=== PATIENT | male | born 1950 | race Caucasian/White ===

== ENCOUNTER 2017-12-26 13:47 | Emergency (ER) | payer OTHER, MEDICARE ==
[~2017-12-26] VITALS: Ht 175.3 cm; Wt 83.9 kg
[2017-12-26 14:34] LABS: ABSOLUTE BASOPHILS 0.1 thou/uL (0.0-0.2); ABSOLUTE LYMPHOCYTES 1.7 thou/uL (0.8-5.3); ABSOLUTE MONOCYTES 1.1 thou/uL (0.0-1.2); ABSOLUTE NEUTROPHILS 7.2 thou/uL (1.6-8.1); BASOPHILS 0.5 %; EOSINOPHILS 0.1 %; HEMATOCRIT 45.9 % (42.0-52.0); HEMOGLOBIN 15.7 gm/dL (14.0-18.0); LYMPHOCYTES 16.7 %; MCH 32.6 pg (26.0-34.0); MCHC 34.2 g/dL (28.0-37.0); MCV 95.4 fL (80.0-100.0); MONOCYTES 11.2 %; MPV 8.3 fl. (7.2-11.1); NUCLEATED RBCS 0 /100WBC; PLATELET COUNT* 225 thou/uL (150-400); POLYS 71.5 %; RBC 4.81 mil/uL (4.50-6.00); RDW-CV 13.9 % (10.5-14.5); WBC 10.1 thou/uL (4.0-11.0)
[2017-12-26 14:49] LABS: CALCIUM 9.3 mg/dL (8.5-10.1); CREATININE 0.9 mg/dL (0.6-1.3); POTASSIUM 3.8 mmol/L (3.5-5.1)
[2017-12-26 14:56] LABS: ALBUMIN 3.5 g/dL (3.4-5.0); TOTAL BILIRUBIN 0.5 mg/dL (<0.1-1.0); TOTAL PROTEIN 8.2 g/dL (6.4-8.2)
[2017-12-26] MEDS ORDERED: ZPAK PO (15:49)
[2017-12-26 16:07] VITALS: BP 137/84
--- NOTE | 2017-12-27 11:55 | EKG ---
[place] [address] ELECTROCARDIOGRAM REPORT Name: SHELDON DIAZ Room: [facility]#: [id number] Admission: 12/26/17 Attend Phys: Discharge: 12/26/17 Date of : 52 Report #: [id number] THIS REPORT FOR: //name// [facility] ED Test Date: 2017-12-26 Test Time: 14:23:45 Pat Name: SHELDON DIAZ Department: Room: Gender: M Outreach Liaison: : 1950 Requested By: Dorothy Wilson Order Number: [id number] MD: Butch Cross Measurements Intervals [place] Rate: 93 P: 39 MS: 230 QRS: -40 QRSD: 128 T: 68 QT: 369 QTc: 459 Interpretive Statements Sinus rhythm Prolonged MS interval RBBB and LAFB Probable left ventricular hypertrophy ST elevation, consider inferior injury No previous ECG available for comparison Electronically Signed On 12-27-2017 11:55:00 CDT by Butch Cross [email or web address] <ELECTRONICALLY SIGNED> By: Butch Cross MD, [facility] 12/27/17 1155 1423 1423 Butch Cross MD, [facility] /EPI
== END 2017-12-26 16:08 | disposition home or self-care (01) ==
LOC: M.ERS 13:47
PROVIDERS: Nurse Practitioner Family
DX: R07.89 Other chest pain (principal); R50.9 Fever, unspecified